=== PATIENT | male | born 2000 | race American Indian/Alaskan Native ===

== ENCOUNTER 2022-05-27 19:04 | Emergency (ER) | payer SELFPAY ==
[2022-05-27 19:57] VITALS: BP 132/89
--- NOTE | 2022-05-27 21:04 | XRay Report ---
RIGHT ANKLE, 3 VIEWS INDICATION / CLINICAL INFORMATION: injury. COMPARISON: None available. FINDINGS: No fracture or dislocation. There is mild soft tissue swelling laterally indicative of sprain. IMPRESSION: Mild lateral soft tissue swelling but no visible fracture or malalignment. Signer Name: Erendira Porter MD Signed: 05/27/2022 9:00 PM Workstation Name: [id number]
--- NOTE | 2022-05-27 21:06 | XRay Report ---
RIGHT FOOT, 3 VIEWS INDICATION / CLINICAL INFORMATION: injury. COMPARISON: None available. FINDINGS: No fracture or dislocation. IMPRESSION: Negative exam. Signer Name: Erendira Porter MD Signed: 05/27/2022 9:01 PM Workstation Name: [id number]
[2022-05-28] MEDS ORDERED: IBUPROFEN 600 MG TAB PO ONE (00:39)
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
[2022-05-28] MEDS ORDERED: SODIUM CHLORIDE 0.9% 1000 ML 1,000 ML ONE (08:48)
== END 2022-05-28 02:28 | disposition home or self-care (01) ==
LOC: ED 19:04
DX: S93.401A Sprain of unspecified ligament of right ankle, initial encounter (principal); Z79.899 Other long term (current) drug therapy; X50.1XXA Overexertion from prolonged static or awkward postures, initial encounter; Y93.89 Activity, other specified; Y92.89 Other specified places as the place of occurrence of the external cause; Y99.8 Other external cause status
CPT/HCPCS: 73610; 73630; 99283; J7030